=== PATIENT | male | born 1985 | race Two or more races ===

== ENCOUNTER → 2022-08-02 | Emergency (ER) | payer BC ==
[~2022-08-02] VITALS: Ht 180.3 cm; Wt 181.6 kg
[~2022-08-02] MED LIST: DICL75TA3 PO
[2022-08-02 15:18] VITALS: BP 130/91
== END | disposition home or self-care (01) ==
LOC: ER 14:45
DX: S83.412A Sprain of medial collateral ligament of left knee, initial encounter (principal); X58.XXXA Exposure to other specified factors, initial encounter; Y93.89 Activity, other specified; Y92.89 Other specified places as the place of occurrence of the external cause; Y99.8 Other external cause status
CPT/HCPCS: 73562